=== PATIENT | female | born 1980 | race Caucasian/White ===

== ENCOUNTER 2018-01-27 07:06 | Day surgery (SDC) | payer BC ==
[~2018-01-27 07:06] MED LIST: CEFAZOLIN 1 GM INJ
[2018-01-27] MEDS ORDERED: FENTAnyl 50 MCG/ML VIAL (10:04)
[2018-01-27] MEDS ORDERED: PROPOFOL 20 ML (10:05)
[2018-01-27] MEDS ORDERED: LIDOCAINE 2% (SDV) 5 ML INJ (10:05)
[2018-01-27] MEDS ORDERED: MIDAZOLAM 1 MG/ML 2 ML INJ (10:12)
[2018-01-27] MEDS: BACITRACIN/POLYMYXIN 28.35 GM OINT TOP (10:41)
[2018-01-27] MEDS: BUPIVACAINE 0.25% (MPF) 30 ML INJ (10:42)
[2018-01-27] MEDS: LIDOCAINE 2% (MDV) 20 ML INJ (10:42)
[2018-01-27] MEDS ORDERED: DIPHENHYDRAMINE 50 MG INJ IV (11:00)
[2018-01-27] MEDS ORDERED: KETOROLAC 30 MG INJ IV (11:00)
[2018-01-27] MEDS ORDERED: MEPERIDINE 25 MG INJ IV (11:00)
[2018-01-27] MEDS ORDERED: OXYCODONE/ACETAMINOPHEN (5/325) TAB PO ×2 (11:00)
[2018-01-27] MEDS ORDERED: MIDAZOLAM 1 MG/ML 2 ML INJ IV (11:00)
[2018-01-27] MEDS ORDERED: hydrALAzine 20 MG INJ IV (11:00)
[2018-01-27] MEDS ORDERED: ONDANSETRON 4 MG INJ IV (11:00)
[2018-01-27] MEDS ORDERED: HYDROCODONE/APAP (5/325) TAB PO (11:00)
[2018-01-27] MEDS ORDERED: EPHEDrine SULFATE 50 MG/5 ML SYG IV (11:00)
[2018-01-27] MEDS ORDERED: LABETALOL HCL 20MG INJ IV (11:00)
[2018-01-27] MEDS ORDERED: ALBUTEROL 0.083% (NEB) 2.5 MG/3 ML AMP HHN (11:00)
[2018-01-27] MEDS ORDERED: FENTAnyl 50 MCG/ML VIAL IV ×2 (11:00)
[2018-01-27] MEDS: FENTAnyl 50 MCG/ML VIAL IV (11:12)
== END 2018-01-27 12:10 | disposition home or self-care (01) ==
LOC: SDS 07:06
DX: D23.62 Other benign neoplasm of skin of left upper limb, including shoulder (principal)
CPT/HCPCS: 14021; 88305